=== PATIENT | male | born 1995 | race Caucasian/White ===

== ENCOUNTER 2018-05-13 06:42 | Emergency (ER) | payer OTHER ==
[~2018-05-13] VITALS: Ht 180.3 cm; Wt 84.1 kg
[2018-05-13 07:23] VITALS: BP 157/92
[2018-05-13] MEDS ORDERED: CYCLOBENZAPRINE HCL 10 MG TABLET PO ONE (07:30)
[2018-05-13] MEDS ORDERED: IBUPROFEN 600 MG TABLET PO ONE (07:30)
== END 2018-05-13 07:48 | disposition home or self-care (01) ==
LOC: EMS 06:42
DX: S39.012A Strain of muscle, fascia and tendon of lower back, initial encounter (principal); V43.62XA Car passenger injured in collision with other type car in traffic accident, initial encounter; Y93.89 Activity, other specified; Y92.89 Other specified places as the place of occurrence of the external cause; Y99.8 Other external cause status